=== PATIENT | male | born 1975 | race Caucasian/White ===

== ENCOUNTER 2017-09-12 16:46 | Inpatient (IN) | payer BC ==
[~2017-09-12] VITALS: Ht 177.8 cm; Wt 120.0 kg
--- NOTE | ~2017-09-12 | CON ---
[place], [place] REPORT OF CONSULTATION NAME: JENNIE LORA UNIT #: [id number] ROOM: 503 DOCTOR: OCTAVIO MCMAHON MD BIRTHDATE: [birth year] DOS: 09/14/2017 GASTROENDOSCOPIC REPORT HISTORY OF PRESENT ILLNESS: This is a 42-year-old patient who presented with chief complaint of abdominal pain for a few days and he was awakened with abdominal pain without diarrhea, without bloody stool. The patient comes to the Emergency Room, white blood cell was 9, H and H of 15 and 44. Comprehensive metabolic panel, electrolyte balance. Chemistry normal. Lipase normal. CT scan of the abdomen in search of his abdominal pain was done, chronic inflammatory changes of terminal ileum and throughout the colon was noticed, superimposition of subtle acute inflammatory terminal ileum just proximal to the ileocecal valve noticed moderate partial small-bowel obstruction "Crohn's" has been of concern. Lactic acid was 0.9, normal, white blood cell remained persistently normal. KUB of the abdomen, dilated gas filled small bowel was identified, which is measuring to 4.3 cm and it is slightly more pronounced proximally. Chest x-ray was obtained, nasogastric tube had to be removed because he was too distressed with it. Sed rate was 23. KUB of the abdomen today improved the small-bowel obstruction has been noticed. PAST MEDICAL HISTORY: Small-bowel obstruction also associated with hiatal hernia, gastritis. PAST SURGICAL HISTORY: Right inguinal hernia repair. ALLERGIES: AMOXICILLIN. MEDICATIONS: Include Norvasc and Protonix. FAMILY HISTORY: Noncontributory. SOCIAL HISTORY: Nonsmoker, rare alcohol consumer. REVIEW OF SYSTEMS: HEENT: Denies double vision, blurred vision. RESPIRATORY: Denies acute shortness of breath. CARDIOVASCULAR: Denies acute chest pain. DIGESTIVE SYSTEM: Abdominal pain. PHYSICAL EXAMINATION: Reveals. HEENT: Head normocephalic, nontraumatic. Mouth and buccal mucosa benign. NECK: Supple, no thyromegaly. CHEST: Symmetric anatomy, equal expansion. No wheeze, no rhonchi. HEART: Normal sinus rhythm, no gallop, no murmur. ABDOMEN: Slightly obese. Bowel sounds present. No pulsatile masses. Specifically, no cyanosis. No bruits. EXTREMITIES: No cyanosis, no pedal edema. NEUROLOGICAL: Alert, oriented to time, place, person. IMPRESSION: Partial small-bowel obstruction at terminal ileum and appears to be [place], [place] REPORT OF CONSULTATION NAME: JENNIE LORA UNIT #: [id number] ROOM: [facility] DOCTOR: SALOME HANLEY,OCTAVIO BIRTHDATE: [birth year] resolution at the present time. There is a concern about terminal ileitis versus benign pathology. Therefore, we are going to treat the patient with Flagyl 500 mg q. 8 hours and clear liquid and IV hydration and if it resolves this without obstruction, we will discharge. Otherwise, we require to do Flagyl therapy for 1 week and then organizing a colonoscopy and terminal ileoscopy to ensure there is no obstructing pathology contribution from Crohn's disease. Thank you very much indeed for your kind referral. OTHER ADJUNCTIVE DIAGNOSES: 1. Gastritis. 2. Hypertension. Workup in progress. KUB of the abdomen tomorrow. Case discussed with the family at the bedside. OCTAVIO MCMAHON MD CM:CONSTR:REPORT OF CONSULTATION 1809 09/14/17 [id number]
[~2017-09-12 16:46] MED LIST: ANAPROX DS550 MG PO; ATENOLOL25 MG PO; BACTRIM DS 8001 TA1 PO; BIAXIN500 MG PO; CLARITIN10 MG PO; DAYPRO600 M1 PO; FLOMAX0.4 MG PO; Fioricet 325 MG1 TAB PO; KEFLEX500 MG PO; MEDROL DOSEPAK4 MG PO; NAPROSYN500 MG PO; PROTONIX40 MG PO; ROBAXIN750 MG PO; VICODIN 5/500 505 MG PO; VICODIN 500 MG-1 TAB PO; VICODIN ES 7501 TAB PO; ZITHROMAX250 MG PO; ZOFRAN ODT4 MG PO; ZOFRAN ODT8 MG PO
[2017-09-12 17:00] VITALS: BP 140/93
[2017-09-12] MEDS ORDERED: NORVASC10 MG PO (17:02)
[2017-09-12 17:26] LABS: BASO % 0.4 % (0.0-1.0); EOS # 0.1 10*3/uL (0.0-0.4); HEMATOCRIT 44.9 % (42.0-52.0); HEMOGLOBIN 15.8 g/dl (14.0-18.0); LYMPH % 11.5 % (27.0-41.0); MEAN CELL VOLUME 84.2 fl (80.0-94.0); MEAN CORPUSCULAR HGB 29.6 pg (27.0-31.0); MEAN CORPUSCULAR HGB CONC 35.2 g/dl (33.0-37.0); MEAN PLATELET VOLUME 9.4 fl (9.6-12.3); MONO # 0.6 10*3/uL (0.1-1.0); MONO % 6.7 % (3.0-9.0); NEUT # 7.2 10*3/uL (2.3-7.9); NEUT % 80.2 % (47.0-73.0); PLATELET COUNT AUTOMATED 263 10*3/uL (130-400); RED BLOOD COUNT 5.33 10*6/uL (4.50-5.90); RED CELL DISTRI WIDTH 12.1 % (0-14.5)
[2017-09-12 17:42] LABS: ALBUMIN 3.9 gm/dl (3.1-4.5); ALKALINE PHOSPHATASE 61 U/L (45-117); BUN 15 mg/dl (7-24); CHLORIDE 104 mmol/L (98-107); CREATININE 1.19 mg/dL (0.70-1.30); LIPASE 122 U/L (73-393); POTASSIUM 3.9 mmol/L (3.5-5.1); SGOT/AST 16 IU/L (3-35); SGPT/ALT 55 U/L (12-78); SODIUM 137 mmol/L (136-145); TOTAL PROTEIN 8.1 gm/dL (6.4-8.2)
[2017-09-12] MEDS ORDERED: ZOFRAN4 MG PO (19:34)
[2017-09-12 22:00] VITALS: BP 133/80
[2017-09-13] VITALS: BP 127/79
[2017-09-13 07:24] LABS: BASO % 0.3 % (0.0-1.0); EOS # 0.1 10*3/uL (0.0-0.4); EOS % 1.5 % (1.0-4.0); HEMATOCRIT 42.2 % (42.0-52.0); HEMOGLOBIN 14.7 g/dl (14.0-18.0); LYMPH % 13.9 % (27.0-41.0); MEAN CELL VOLUME 85.4 fl (80.0-94.0); MEAN CORPUSCULAR HGB 29.8 pg (27.0-31.0); MEAN CORPUSCULAR HGB CONC 34.8 g/dl (33.0-37.0); MEAN PLATELET VOLUME 10.1 fl (9.6-12.3); MONO # 0.6 10*3/uL (0.1-1.0); MONO % 7.7 % (3.0-9.0); NEUT # 5.7 10*3/uL (2.3-7.9); NEUT % 76.5 % (47.0-73.0); PLATELET COUNT AUTOMATED 259 10*3/uL (130-400); RED BLOOD COUNT 4.94 10*6/uL (4.50-5.90); RED CELL DISTRI WIDTH 12.1 % (0-14.5); WHITE BLOOD COUNT 7.4 10*3/uL (4.8-10.8)
[2017-09-13 07:49] LABS: INTERNATIONAL NORM RATIO 0.9 (2.0-3.5)
[2017-09-13 07:53] LABS: ALBUMIN 3.6 gm/dl (3.1-4.5); BUN 12 mg/dl (7-24); CHLORIDE 106 mmol/L (98-107); POTASSIUM 3.8 mmol/L (3.5-5.1); SODIUM 140 mmol/L (136-145)
[2017-09-13 08:00] VITALS: BP 129/77
[2017-09-13 08:00] LABS: ALKALINE PHOSPHATASE 61 U/L (45-117); CHOLESTEROL 151 mg/dL (<200); CREATININE 1.11 mg/dL (0.70-1.30); HDL CHOLESTEROL 45 mg/dl (40-60); LDL CHOLESTEROL 87 mg/dL (9-159); PHOSPHOROUS 3.1 mg/dL (2.5-4.9); SGOT/AST 19 IU/L (3-35); SGPT/ALT 47 U/L (12-78); THYROID STIM HORMONE (HS) 0.693 uIU/ml (0.358-4.75); TOTAL PROTEIN 7.4 gm/dL (6.4-8.2); TRIGLYCERIDES 93 mg/dl (<150); VLDL CHOLESTEROL 19 mg/dL (6-40)
[2017-09-13 09:14] LABS: VITAMIN D, 25-HYDROXY 23.3 ng/mL (30-100)
[2017-09-13 12:00] VITALS: BP 144/87
[2017-09-13 16:00] VITALS: BP 139/84
[2017-09-13 20:00] VITALS: BP 139/75
[2017-09-14] VITALS: BP 130/77
[2017-09-14 06:43] LABS: BASO % 0.5 % (0.0-1.0); EOS # 0.2 10*3/uL (0.0-0.4); EOS % 2.6 % (1.0-4.0); HEMATOCRIT 40.1 % (42.0-52.0); LYMPH # 1.4 10*3/uL (1.3-4.4); LYMPH % 22.5 % (27.0-41.0); MEAN CELL VOLUME 85.7 fl (80.0-94.0); MEAN CORPUSCULAR HGB 29.9 pg (27.0-31.0); MEAN CORPUSCULAR HGB CONC 34.9 g/dl (33.0-37.0); MEAN PLATELET VOLUME 10.1 fl (9.6-12.3); MONO # 0.8 10*3/uL (0.1-1.0); MONO % 12.3 % (3.0-9.0); NEUT # 3.8 10*3/uL (2.3-7.9); NEUT % 61.9 % (47.0-73.0); PLATELET COUNT AUTOMATED 223 10*3/uL (130-400); RED BLOOD COUNT 4.68 10*6/uL (4.50-5.90); RED CELL DISTRI WIDTH 11.9 % (0-14.5); WHITE BLOOD COUNT 6.1 10*3/uL (4.8-10.8)
[2017-09-14 07:13] LABS: ALBUMIN 3.1 gm/dl (3.1-4.5); ALKALINE PHOSPHATASE 56 U/L (45-117); BUN 10 mg/dl (7-24); CHLORIDE 107 mmol/L (98-107); CREATININE 0.92 mg/dL (0.70-1.30); LIPASE 139 U/L (73-393); POTASSIUM 3.7 mmol/L (3.5-5.1); SGOT/AST 14 IU/L (3-35); SGPT/ALT 36 U/L (12-78); SODIUM 141 mmol/L (136-145); TOTAL PROTEIN 6.6 gm/dL (6.4-8.2)
[2017-09-14 08:00] VITALS: BP 130/76
[2017-09-14 16:00] VITALS: BP 148/88
[2017-09-14 20:00] VITALS: BP 133/84
[2017-09-15] VITALS: BP 109/69
[2017-09-15 06:30] LABS: BASO % 0.8 % (0.0-1.0); EOS # 0.3 10*3/uL (0.0-0.4); EOS % 5.3 % (1.0-4.0); HEMATOCRIT 39.3 % (42.0-52.0); HEMOGLOBIN 13.7 g/dl (14.0-18.0); LYMPH # 1.1 10*3/uL (1.3-4.4); LYMPH % 21.8 % (27.0-41.0); MEAN CELL VOLUME 86.2 fl (80.0-94.0); MEAN CORPUSCULAR HGB CONC 34.9 g/dl (33.0-37.0); MEAN PLATELET VOLUME 9.7 fl (9.6-12.3); MONO # 0.6 10*3/uL (0.1-1.0); MONO % 10.5 % (3.0-9.0); NEUT # 3.2 10*3/uL (2.3-7.9); NEUT % 61.4 % (47.0-73.0); PLATELET COUNT AUTOMATED 226 10*3/uL (130-400); RED BLOOD COUNT 4.56 10*6/uL (4.50-5.90); RED CELL DISTRI WIDTH 11.9 % (0-14.5); WHITE BLOOD COUNT 5.2 10*3/uL (4.8-10.8)
[2017-09-15 06:44] LABS: ALBUMIN 3.3 gm/dl (3.1-4.5); ALKALINE PHOSPHATASE 56 U/L (45-117); BUN 7 mg/dl (7-24); CHLORIDE 108 mmol/L (98-107); CREATININE 0.94 mg/dL (0.70-1.30); POTASSIUM 3.7 mmol/L (3.5-5.1); SGOT/AST 19 IU/L (3-35); SGPT/ALT 46 U/L (12-78); SODIUM 141 mmol/L (136-145); TOTAL PROTEIN 6.8 gm/dL (6.4-8.2)
[2017-09-15 08:00] VITALS: BP 121/78
[2017-09-15 12:00] VITALS: BP 133/90
[2017-09-15 16:00] VITALS: BP 131/86
[2017-09-15 20:00] VITALS: BP 138/83
[2017-09-16] VITALS: BP 137/86
[2017-09-16 07:46] VITALS: BP 124/78
[2017-09-16 11:47] VITALS: BP 139/84
[2017-09-16] MEDS ORDERED: FLAGYL500 MG PO (13:03)
[2017-09-16] MEDS ORDERED: VITAMIN D31000 UNI1 PO (13:03)
== END 2017-09-16 13:56 | disposition home or self-care (01) | DRG 390 ==
LOC: ED 16:46 → 5E 20:32 → EDHOLD 20:32 → 5E 21:06
PROVIDERS: Emergency Medicine; Hospitalist; Internal Medicine; Nurse Practitioner Family; ADMIT Internal Medicine
DX: K56.600 Partial intestinal obstruction, unspecified as to cause (principal); E55.9 Vitamin D deficiency, unspecified; I10 Essential (primary) hypertension; R73.9 Hyperglycemia, unspecified; K21.9 Gastro-esophageal reflux disease without esophagitis; K52.9 Noninfective gastroenteritis and colitis, unspecified; K64.9 Unspecified hemorrhoids; E66.9 Obesity, unspecified; Z68.37 Body mass index [BMI] 37.0-37.9, adult; Z88.1 Allergy status to other antibiotic agents; Z79.899 Other long term (current) drug therapy; Z83.3 Family history of diabetes mellitus; Z82.49 Family history of ischemic heart disease and other diseases of the circulatory system

== ENCOUNTER 2019-08-18 09:58 | Emergency (ER) | payer BC ==
[~2019-08-18] VITALS: Ht 177.8 cm; Wt 120.2 kg
[~2019-08-18 09:58] MED LIST changes: +FLAGYL500 MG PO; +NORVASC10 MG PO; +VITAMIN D31000 UNI1 PO; +ZOFRAN4 MG PO
[2019-08-18 10:28] LABS: BILIRUBIN NEGATIVE (NEGATIVE); BLOOD NEGATIVE (NEGATIVE); CLARITY CLEAR (CLEAR); COLOR YELLOW (YELLOW); GLUCOSE NEGATIVE (NEGATIVE); KETONE NEGATIVE (NEGATIVE); LEUKO ESTERASE NEGATIVE (NEGATIVE); NITRITE NEGATIVE (NEGATIVE); PH 6.5 (5.0-9.0); SPECIFIC GRAVITY <= 1.005 (1.005-1.030); UROBILINOGEN 0.2 E.U./dl (0.2-1.0)
[2019-08-18 10:34] LABS: BASO # 0.1 10*3/uL (0.0-0.1); BASO % 0.4 % (0.0-1.0); EOS # 0.2 10*3/uL (0.0-0.4); EOS % 1.5 % (1.0-4.0); HEMATOCRIT 45.3 % (42.0-52.0); HEMOGLOBIN 15.5 g/dl (14.0-18.0); LYMPH # 1.3 10*3/uL (1.3-4.4); LYMPH % 11.4 % (27.0-41.0); MEAN CELL VOLUME 86.9 fl (80.0-94.0); MEAN CORPUSCULAR HGB 29.8 pg (27.0-31.0); MEAN CORPUSCULAR HGB CONC 34.2 g/dl (33.0-37.0); MEAN PLATELET VOLUME 9.7 fl (9.6-12.3); MONO % 8.8 % (3.0-9.0); NEUT # 8.8 10*3/uL (2.3-7.9); NEUT % 77.6 % (47.0-73.0); PLATELET COUNT AUTOMATED 249 10*3/uL (130-400); RED BLOOD COUNT 5.21 10*6/uL (4.50-5.90); RED CELL DISTRI WIDTH 12.2 % (0-14.5); WHITE BLOOD COUNT 11.3 10*3/uL (4.8-10.8)
[2019-08-18 10:40] LABS: BACTERIA TRACE
[2019-08-18 11:01] LABS: ALBUMIN 3.9 gm/dl (3.1-4.5); ALKALINE PHOSPHATASE 70 U/L (45-117); BUN 10 mg/dl (7-24); CHLORIDE 108 mmol/L (98-107); CREATININE 0.99 mg/dL (0.70-1.30); POTASSIUM 3.8 mmol/L (3.5-5.1); SGOT/AST 20 IU/L (3-35); SGPT/ALT 62 U/L (12-78); SODIUM 138 mmol/L (136-145); TOTAL PROTEIN 8.2 gm/dL (6.4-8.2)
[2019-08-18] MEDS ORDERED: CIPRO500 MG PO (13:45)
[2019-08-18] MEDS ORDERED: FLAGYL500 MG PO (13:45)
== END 2019-08-18 13:48 | disposition home or self-care (01) ==
LOC: ED 09:58
PROVIDERS: Emergency Medicine
DX: K57.32 Diverticulitis of large intestine without perforation or abscess without bleeding (principal); I10 Essential (primary) hypertension; K21.9 Gastro-esophageal reflux disease without esophagitis; E66.9 Obesity, unspecified; Z88.0 Allergy status to penicillin; Z79.899 Other long term (current) drug therapy; Z68.30 Body mass index [BMI] 30.0-30.9, adult

== ENCOUNTER 2019-09-06 15:40 | Emergency (ER) | payer BC ==
[~2019-09-06] VITALS: Ht 177.8 cm; Wt 120.2 kg
[~2019-09-06 15:40] MED LIST changes: +CIPRO500 MG PO
[2019-09-06 16:33] LABS: BASO % 0.6 % (0.0-1.0); EOS % 0.6 % (1.0-4.0); HEMATOCRIT 44.1 % (42.0-52.0); LYMPH # 0.7 10*3/uL (1.3-4.4); LYMPH % 14.6 % (27.0-41.0); MEAN CELL VOLUME 87.3 fl (80.0-94.0); MEAN CORPUSCULAR HGB 29.7 pg (27.0-31.0); MEAN PLATELET VOLUME 9.5 fl (9.6-12.3); MONO # 0.5 10*3/uL (0.1-1.0); MONO % 11.1 % (3.0-9.0); NEUT # 3.4 10*3/uL (2.3-7.9); NEUT % 72.9 % (47.0-73.0); PLATELET COUNT AUTOMATED 218 10*3/uL (130-400); RED BLOOD COUNT 5.05 10*6/uL (4.50-5.90); RED CELL DISTRI WIDTH 12.4 % (0-14.5); WHITE BLOOD COUNT 4.7 10*3/uL (4.8-10.8)
[2019-09-06 16:41] LABS: BILIRUBIN NEGATIVE (NEGATIVE); BLOOD NEGATIVE (NEGATIVE); CLARITY CLEAR (CLEAR); COLOR YELLOW (YELLOW); GLUCOSE NEGATIVE (NEGATIVE); KETONE NEGATIVE (NEGATIVE); LEUKO ESTERASE NEGATIVE (NEGATIVE); NITRITE NEGATIVE (NEGATIVE); SPECIFIC GRAVITY <= 1.005 (1.005-1.030); UROBILINOGEN 0.2 E.U./dl (0.2-1.0)
[2019-09-06 16:48] LABS: EPITHELIAL CELLS 0-2
[2019-09-06 16:48] LABS: ALBUMIN 3.6 gm/dl (3.1-4.5); ALKALINE PHOSPHATASE 64 U/L (45-117); BUN 9 mg/dl (7-24); CHLORIDE 106 mmol/L (98-107); CREATININE 1.08 mg/dL (0.70-1.30); POTASSIUM 3.5 mmol/L (3.5-5.1); SGOT/AST 54 IU/L (3-35); SGPT/ALT 126 U/L (12-78); SODIUM 138 mmol/L (136-145); TOTAL PROTEIN 7.8 gm/dL (6.4-8.2)
[2019-09-06] MEDS ORDERED: FLAGYL500 MG PO (20:13)
[2019-09-06] MEDS ORDERED: CIPRO500 MG PO (20:13)
== END 2019-09-06 20:32 | disposition home or self-care (01) ==
LOC: ED 15:40
PROVIDERS: Physician Assistant
DX: K57.32 Diverticulitis of large intestine without perforation or abscess without bleeding (principal); R19.7 Diarrhea, unspecified; I10 Essential (primary) hypertension; K21.9 Gastro-esophageal reflux disease without esophagitis; Z88.0 Allergy status to penicillin; Z79.899 Other long term (current) drug therapy

== ENCOUNTER → 2020-12-04 | Outpatient (CLI) | payer BC | END | disposition home or self-care (01) | LOC: RAD 09:37 | PROVIDERS: ATTEND Chiropractor | DX: M54.5 Low back pain (principal) ==

== ENCOUNTER 2023-10-18 11:15 | Emergency (ER) | payer BC ==
[~2023-10-18] VITALS: Ht 180.3 cm; Wt 120.2 kg
[2023-10-18] MEDS ORDERED: PREDNISONE50 MG PO (11:33)
== END 2023-10-18 11:54 | disposition home or self-care (01) ==
LOC: ED 11:15
DX: M54.41 Lumbago with sciatica, right side (principal); M25.551 Pain in right hip; I10 Essential (primary) hypertension; K21.9 Gastro-esophageal reflux disease without esophagitis; Z88.0 Allergy status to penicillin; Z98.890 Other specified postprocedural states

== ENCOUNTER 2023-10-25 13:55 | Emergency (ER) | payer BC ==
[~2023-10-25] VITALS: Ht 180.3 cm; Wt 120.2 kg
[~2023-10-25 13:55] MED LIST changes: +PREDNISONE50 MG PO
[2023-10-25 15:46] LABS: BILIRUBIN Negative (Negative); BLOOD Negative (Negative); CLARITY Clear (Clear); COLOR Yellow (Yellow); GLUCOSE Negative (Negative); KETONE Negative (Negative); LEUKO ESTERASE Negative (Negative); NITRITE Negative (Negative); PH 6.5 (4.5-8.0); SPECIFIC GRAVITY <= 1.005 (1.001-1.030); UROBILINOGEN 0.2 E.U./dl (0.0-1.0)
[2023-10-25 15:58] LABS: BACTERIA TRACE
[2023-10-25] MEDS ORDERED: CYCLOBENZAPRINE10 MG PO (17:18)
[2023-10-25] MEDS ORDERED: MELOXICAM7.5 MG PO (17:18)
== END 2023-10-25 17:26 | disposition home or self-care (01) ==
LOC: ED 13:55
PROVIDERS: Physician Assistant Medical
DX: M54.16 Radiculopathy, lumbar region (principal); M79.604 Pain in right leg; I10 Essential (primary) hypertension; K21.9 Gastro-esophageal reflux disease without esophagitis; Z88.0 Allergy status to penicillin; Z98.890 Other specified postprocedural states

== ENCOUNTER 2023-12-21 17:42 | Emergency (ER) | payer BC ==
[~2023-12-21] VITALS: Ht 177.8 cm; Wt 120.2 kg
[~2023-12-21 17:42] MED LIST changes: +CYCLOBENZAPRINE10 MG PO; +MELOXICAM7.5 MG PO
[2023-12-21] MEDS ORDERED: Dexamethasone Sodium Phospha 20 MG/5 ML VIAL IM ONE (18:35)
[2023-12-21] MEDS ORDERED: Ketorolac Tromethamine 30 MG/ML VIAL IM ONE (18:35)
[2023-12-21] MEDS ORDERED: Ondansetron Hydrochloride 4 MG TAB SL ONE (19:50)
[2023-12-21] MEDS ORDERED: MEPERIDINE HYDROCHLORIDE 25 MG/1 ML VIAL IM ONE (19:50)
== END 2023-12-21 20:09 | disposition home or self-care (01) ==
LOC: ED 17:42
DX: M54.41 Lumbago with sciatica, right side (principal); Z88.0 Allergy status to penicillin; Z79.899 Other long term (current) drug therapy; Z79.2 Long term (current) use of antibiotics; Z98.890 Other specified postprocedural states

== ENCOUNTER → 2024-05-20 | Outpatient (CLI) | payer BC | END | disposition home or self-care (01) | LOC: LAB 10:05 | DX: Z01.812 Encounter for preprocedural laboratory examination (principal) ==

== ENCOUNTER 2025-02-27 09:15 | Emergency (ER) | payer BC ==
[~2025-02-27] VITALS: Ht 180.3 cm; Wt 122.5 kg
[2025-02-27] MEDS ORDERED: Ketorolac Tromethamine 30 MG/ML VIAL IV ONE (09:30)
[2025-02-27 09:50] LABS: BILIRUBIN Negative (Negative); BLOOD Negative (Negative); CLARITY Clear (Clear); COLOR Yellow (Yellow); GLUCOSE Negative (Negative); KETONE Trace (Negative); LEUKO ESTERASE Negative (Negative); NITRITE Negative (Negative); PH 5.5 (4.5-8.0); SPECIFIC GRAVITY 1.015 (1.001-1.030); UROBILINOGEN 0.2 E.U./dl (0.0-1.0)
[2025-02-27 09:52] LABS: BASO # 0.1 10*3/uL (0.0-0.1); BASO % 0.4 % (0.0-1.0); EOS # 0.3 10*3/uL (0.0-0.4); EOS % 2.3 % (1.0-4.0); HEMATOCRIT 45.4 % (42.0-52.0); MEAN CORPUSCULAR HGB 29.3 pg (27.0-31.0); MEAN CORPUSCULAR HGB CONC 33.3 g/dl (33.0-37.0); MEAN PLATELET VOLUME 9.9 fl (9.6-12.3); MONO # 0.6 10*3/uL (0.1-1.0); MONO % 5.3 % (3.0-9.0); NEUT % 77.5 % (47.0-73.0); PLATELET COUNT AUTOMATED 252 10*3/uL (130-400); RED BLOOD COUNT 5.16 10*6/uL (4.50-5.90); RED CELL DISTRI WIDTH 12.5 % (0-14.5); WHITE BLOOD COUNT 11.6 10*3/uL (4.8-10.8)
[2025-02-27 10:12] LABS: ALKALINE PHOSPHATASE 73 U/L (46-116); BUN 15 mg/dl (9-23); CHLORIDE 102 mmol/L (98-107); LIPASE 34 U/L (12-53); POTASSIUM 3.8 mmol/L (3.4-5.1); SGPT/ALT 48 U/L (5-49); TOTAL PROTEIN 7.7 gm/dL (6.0-8.0)
[2025-02-27 10:25] LABS: RBC 0-2 rbc/hpf (0-2); WBC 0-2 wbc/hpf (0-5)
[2025-02-27] MEDS ORDERED: CIPRO500 MG PO (11:46)
[2025-02-27] MEDS ORDERED: METRONIDAZOLE500 M1 PO (11:46)
== END 2025-02-27 12:02 | disposition home or self-care (01) ==
LOC: ED 09:15
PROVIDERS: Physician Assistant Medical
DX: K57.32 Diverticulitis of large intestine without perforation or abscess without bleeding (principal); I10 Essential (primary) hypertension; Z88.0 Allergy status to penicillin; Z79.899 Other long term (current) drug therapy; Z98.890 Other specified postprocedural states; Z90.49 Acquired absence of other specified parts of digestive tract